=== PATIENT | female | born 1975 | race Caucasian/White ===

== ENCOUNTER 2021-06-03 13:18 | Emergency (ER) | payer MEDICAID, SELFPAY ==
[2021-06-03 13:33] VITALS: BP 173/126; PULSE 92; RESP 16; TEMP 36.8; O2SAT 99; BMI 25.7
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
[2021-06-03] MEDS: ketorolac 60 mg/2 mL INJ IM (13:54)
[2021-06-03] MEDS: dexamethasone 10 mg/mL INJ 8 MG IM (13:55)
--- NOTE | 2021-06-11 12:12 | DCPLANNER ---
manager product had message to speak with patient about getting a primary care physician. manager product unable to speak with patient at this time.
== END 2021-06-03 14:19 | disposition home or self-care (01) ==
PROVIDERS: Emergency Provider Physician Assistant
DX: G89.29 Other chronic pain (principal); M54.6 Pain in thoracic spine
CPT/HCPCS: 96372; 99283; J1100; J1885

== ENCOUNTER 2021-07-08 10:53 | Outpatient (CLI) | payer MEDICAID, SELFPAY ==
[2021-07-08 11:19] LABS: Basophils # 0.1 10^3/uL (0.0-0.1); Basophils % 0.7 %; Eosinophils # 0.8 10^3/uL (0.0-0.8); Eosinophils % 7.3 %; Hematocrit 43.6 % (37.0-47.0); Hemoglobin 14.7 g/dL (11.5-15.3); Lymphocytes # 3.2 10^3/uL (0.8-4.8); Lymphocytes % 27.9 %; Mean Corpuscular HGB Conc 33.7 g/dL (30.0-36.0); Mean Corpuscular Hemoglobin 30.6 pg (28.0-34.0); Mean Corpuscular Volume 90.6 fl (81-99); Mean Platelet Volume 9.5 fL (7.4-10.4); Monocytes # 0.8 10^3/uL (0.2-0.9); Monocytes % 6.6 %; Neutrophils # 6.46 10^3/uL (1.8-7.7); Neutrophils % 57.2 %; Nucleated Red Blood Cells % 0 %; Platelet Count 297 10^3/cmm (130-400); Red Blood Count 4.81 10^6/uL (4.1-5.3); Red Cell Distribution Width 12.5 % (12.1-15.1); White Blood Count 11.3 10^3/uL (4.0-10.0)
[2021-07-08 11:38] LABS: Alanine Aminotransferase 11 U/L (0-33); Albumin Level 4.9 g/dL (3.5-5.2); Alkaline Phosphatase 84 IU/L (35-105); Anion Gap 17.2 (5-19); Aspartate Amino Transferase 16 U/L (0-32); Blood Urea Nitrogen 10 mg/dL (6-20); Calcium 9.9 mg/dL (8.5-10.5); Carbon Dioxide 23 mmol/L (22-29); Chloride 103 mmol/L (98-107); Chol HDL Ratio 6.54 mg/dL (0.0-4.40); Cholesterol 268 mg/dL (0-200); Globulin 2.7 g/dL (1.3-4.6); Glomerular Filtration Rate 108.1 mL/min (90-130); Glucose 90 mg/dL (65-115); HDL Cholesterol 41 mg/dL (60-100); LDL Cholesterol Calculated 175 mg/dL (50-129); LDL HDL Ratio 4.27 RATIO (0.00-3.22); Osmolality Calculated 287 mOsm/kg (285-295); Potassium 4.2 mmol/L (3.5-5.1); Sodium 139 mmol/L (136-145); Total Bilirubin 0.3 mg/dL (0.15-1.2); Total Protein 7.6 g/dL (6.6-8.7); Triglycerides 262 mg/dL (0-150)
[2021-07-08 12:11] LABS: Hepatitis C Virus Antibody Non-Reactive (Nonreactive)
[2021-07-08 12:13] LABS: HIV 1 & 2 Antibody Non-Reactive (Non-Reactiv); HIV 1 & 2 Antigen Non-Reactive (Non-Reactiv)
== END 2021-07-08 10:54 | disposition home or self-care (01) ==
LOC: LAB 10:55
PROVIDERS: PCP Family Medicine; Visit Provider Family Medicine
DX: Z11.4 Encounter for screening for human immunodeficiency virus [HIV] (principal); Z11.59 Encounter for screening for other viral diseases; Z13.220 Encounter for screening for lipoid disorders; Z13.6 Encounter for screening for cardiovascular disorders; F17.218 Nicotine dependence, cigarettes, with other nicotine-induced disorders; Z76.89 Persons encountering health services in other specified circumstances; Z98.1 Arthrodesis status
CPT/HCPCS: 36415; 80053; 80061; 85025; 86803; 87806

== ENCOUNTER → 2021-07-15 09:36 | Outpatient (BNVA) | payer MEDICAID, SELFPAY | PROVIDERS: PCP Family Medicine; Referring Provider Family Medicine; Visit Provider Physician Assistant | DX: M54.50 Low back pain, unspecified (principal); Z98.1 Arthrodesis status; M54.6 Pain in thoracic spine | CPT/HCPCS: 99203 ==

== ENCOUNTER → 2021-07-22 09:45 | Outpatient (BNVA) | payer MEDICAID, SELFPAY | PROVIDERS: PCP Family Medicine; Visit Provider Anesthesiology Pain Medicine | DX: M79.18 Myalgia, other site (principal); M54.6 Pain in thoracic spine; F17.210 Nicotine dependence, cigarettes, uncomplicated | CPT/HCPCS: 20553; 99204; J1030; J3490 ==

== ENCOUNTER → 2021-08-12 13:58 | Outpatient (BNVA) | payer MEDICAID, SELFPAY | PROVIDERS: PCP Family Medicine; Visit Provider Family Medicine | DX: Z01.419 Encounter for gynecological examination (general) (routine) without abnormal findings (principal); F17.218 Nicotine dependence, cigarettes, with other nicotine-induced disorders; Z12.11 Encounter for screening for malignant neoplasm of colon; Z12.39 Encounter for other screening for malignant neoplasm of breast | CPT/HCPCS: 87624 ==

== ENCOUNTER → 2021-08-26 14:31 | Outpatient (BNVA) | payer MEDICAID, SELFPAY | PROVIDERS: PCP Family Medicine; Referring Provider Family Medicine; Visit Provider Surgery | DX: Z12.11 Encounter for screening for malignant neoplasm of colon (principal) ==

== ENCOUNTER 2021-09-04 06:00 | Outpatient (RCR) | payer MEDICAID, SELFPAY | END 2021-09-09 23:59 | disposition home or self-care (01) | LOC: SPT 06:00 | PROVIDERS: PCP Family Medicine; Referring Provider Family Medicine; Visit Provider Family Medicine | DX: M54.50 Low back pain, unspecified (principal); M54.6 Pain in thoracic spine; G89.29 Other chronic pain; Z98.1 Arthrodesis status | CPT/HCPCS: 97162 ==

== ENCOUNTER 2021-09-10 06:00 | Outpatient (RCR) | payer OTHER, SELFPAY | END 2021-10-09 23:59 | disposition home or self-care (01) | LOC: SPT 06:00 | PROVIDERS: PCP Family Medicine; Referring Provider Family Medicine; Visit Provider Family Medicine | DX: G89.29 Other chronic pain (principal); M54.50 Low back pain, unspecified; M54.6 Pain in thoracic spine; Z98.1 Arthrodesis status | CPT/HCPCS: 97110 ==

== ENCOUNTER 2021-09-17 13:04 | Outpatient (CLI) | payer MEDICAID, SELFPAY ==
--- NOTE | 2021-09-17 13:13 | MM_ITS ---
WS: [id number] BILATERAL 3D TOMOSYNTHESIS DIGITAL SCREENING MAMMOGRAPHY WITH CAD CLINICAL INFORMATION: Screening for breast cancer. HISTORY: Screening mammogram. No current complaints. COMPARISON: None. TECHNIQUE: Bilateral CC and MLO views. FINDINGS: The breasts are composed of heterogeneous fibroglandular density tissue, which can limit the detectio n of small underlying mass lesions. Bilateral nodular breast tissue. This most likely represents nahid st cyst but indeterminant no comparisons. Recommend further evaluation with bilateral four-quadrant b reast survey ultrasound. Largest nodule posterior depth LEFT breast in the MLO view measuring 8 mm. MM/[place] [id number] IMPRESSION: BI-RADS: 0-Incomplete: Need additional imaging evaluation FOLLOW UP: Need Additional Imaging Recommend bilateral four-quadrant breast survey ultrasound for multiple bilater al ovoid nodules likely bilateral breast cysts. No prior imaging.
== END 2021-09-17 13:05 | disposition home or self-care (01) ==
LOC: RAD 13:10
PROVIDERS: PCP Family Medicine; Visit Provider Family Medicine
DX: Z12.31 Encounter for screening mammogram for malignant neoplasm of breast (principal)
CPT/HCPCS: 77063; 77067

== ENCOUNTER 2021-09-19 06:29 | Day surgery (SDC) | payer MEDICAID, SELFPAY ==
[2021-09-16 09:44] VITALS: BMI 27.4
[2021-09-19 06:51] VITALS: BP 157/107; PULSE 89; RESP 18; TEMP 36.1; O2SAT 96
[2021-09-19] MEDS: sodium chloride 0.9% 1,000 ML 30 ML IV (06:51)
--- NOTE | 2021-09-19 07:13 | ANES.PREANE2 ---
Pre-Anesthetic Assessment Height/Weight: Height 1.6 m Weight 70.307 kg Temp Pulse Resp BP Pulse Ox 97.0 F L 89 18 157/107 96 09/19/21 06:51 09/19/21 06:51 09/19/21 06:51 09/19/21 06:51 09/19/21 06:51 Preop Diagnosis: need for colon screening Operation Date: 09/19/21 08:00 Proposed Procedures p Colonoscopy 79370,Z12.11(Not Applicable) - Matt Swain DO Familial anesthetic complications: None Was Beta Cris taken within 24 hours: N/A Was Clonidine taken within 24 hours: N/A Last intake: Intake Last Liquid Date 09/18/21 Last Liquid Time 21:00 Last Solid Date 09/17/21 Social Tobacco and No alcohol Exam alert, oriented x 3, clear to auscultation bilaterally and regular rate & rhythm Airway Mallampati: Class III Dentition: full Pulmonary Asthma took albuterol inhaler this morning CV/HEM None reported None reported Hepatic None reported GI None reported Metabolic Hyperlipidemia Musc/skel Lower Back Pain (s/p spinal fusion) Neuropsych None reported Anesthetic Plan ASA status: 2 Anesthesia: MAC Risk of > 500 ml blood loss (7ml/kg in children): No Medications/Allergies Home Medications Medication Instructions Recorded Confirmed Last Taken Type hydroxyzine HCl 50 mg tablet 50 mg PO TID PRN 06/03/21 09/19/21 09/17/21 History gabapentin 300 mg capsule 900 mg PO TID #270 cap 07/08/21 09/19/21 09/19/21 05:30 Rx meloxicam 7.5 mg tablet 7.5 mg PO DAILY #30 tab 07/08/21 09/19/21 09/17/21 Rx methocarbamol 500 mg tablet 500 mg PO TID #90 tab 07/08/21 09/19/21 09/17/21 Rx tiotropium bromide 1.25 2 puff INHALATION DAILY PRN 07/08/21 09/19/21 09/17/21 History mcg/actuation mist for inhalation (Spiriva Respimat) cetirizine 10 mg tablet 10 mg PO DAILY PRN #90 tab 07/10/21 09/19/21 09/17/21 Rx albuterol sulfate 90 mcg/actuation 1 inh INHALATION QID PRN #8.5 g 08/05/21 09/19/21 09/19/21 05:30 Rx aerosol inhaler bupropion HCl 150 mg 24 hr tablet, 150 mg PO QAM #30 tab 08/12/21 09/19/21 09/18/21 Rx extended release ihqcgrxc-cmosreohj-bwvqflwxm 3.5 4 drp OTIC (EAR) Q8H PRN 09/16/21 09/19/21 Unknown History mg-10,000 unit/mL-1 % ear drops,susp Allergies Allergy/AdvReac Type Severity Reaction Status Date / Time porcien Allergy ADR-Diarrhe Uncoded 09/19/21 06:45 a Current Medications Generic Name Dose Route Start Last Admin Trade Name Freq PRN Reason Stop Dose Admin Sodium Chloride 1,000 mls @ 30 mls/hr 09/19/21 06:45 09/19/21 06:51 Sodium Chloride 0.9% IV 09/20/21 06:44 30 mls/hr .Q24H BELLE Administration PFSH Anesthesia Surgical History History of thoracic spinal fusion Social History Smoking and tobacco status: never smoked Alcohol intake: current Alcohol intake frequency: holidays/special occasions only Data Anesthesia Cardiac Studies: No Data to Display
--- NOTE | 2021-09-19 08:01 | PM.HP ---
Providers/Chief Complaint Primary Care Provider: Klever Longo DO History of Present Illness Xiomy Aguirre is a 46 year old female in need of her first colonoscopy. No complaints Review of Systems General: Reports: 10 or more systems reviewed and unremarkable except in HPI and below Medications/Allergies Home Medications Medication Instructions Recorded Confirmed Last Taken Type hydroxyzine HCl 50 mg tablet 50 mg PO TID PRN 06/03/21 09/19/21 09/17/21 History gabapentin 300 mg capsule 900 mg PO TID #270 cap 07/08/21 09/19/21 09/19/21 05:30 Rx meloxicam 7.5 mg tablet 7.5 mg PO DAILY #30 tab 07/08/21 09/19/21 09/17/21 Rx methocarbamol 500 mg tablet 500 mg PO TID #90 tab 07/08/21 09/19/21 09/17/21 Rx tiotropium bromide 1.25 2 puff INHALATION DAILY PRN 07/08/21 09/19/21 09/17/21 History mcg/actuation mist for inhalation (Spiriva Respimat) cetirizine 10 mg tablet 10 mg PO DAILY PRN #90 tab 07/10/21 09/19/21 09/17/21 Rx albuterol sulfate 90 mcg/actuation 1 inh INHALATION QID PRN #8.5 g 08/05/21 09/19/21 09/19/21 05:30 Rx aerosol inhaler bupropion HCl 150 mg 24 hr tablet, 150 mg PO QAM #30 tab 08/12/21 09/19/21 09/18/21 Rx extended release ipudlqbb-unpklnzby-[id number] 3.5 4 drp OTIC (EAR) Q8H PRN 09/16/21 09/19/21 Unknown History mg-10,000 unit/mL-1 % ear drops,susp Allergies Allergy/AdvReac Type Severity Reaction Status Date / Time porcien Allergy ADR-Diarrhe Uncoded 09/19/21 06:45 a PFSH Acute PFSH: Surgical History History of thoracic spinal fusion Social History Smoking and tobacco status: never smoked Alcohol intake: current Alcohol intake frequency: holidays/special occasions only Vitals/I&O/Wt Last Vital Signs Temp 97.0 F L 09/19/21 06:51 Pulse 89 09/19/21 06:51 Resp 18 09/19/21 06:51 BP 157/107 09/19/21 06:51 Pulse Ox 96 09/19/21 06:51 Physical Exam Narrative: General : Patient is well developed , no acute distress, oriented x3 Head : Normal cephalic, a-traumatic. Ears : Pinnae and external canal are normal. Hearing is normal. Eyes : PERRLA, Sclera and injection are normal. No conjunctival discharge. Nose : Mucous membranes are without erythema. Throat : buccal mucosa is normal, gums are without significant recession or hypertrophy. Lungs : Equal chest rise bilaterally, no use of accessory muscles, trachea is midline. Cor : Rate and rhythm are normal. Abdomen : Soft, ND, NT, no g/r/m Extremities : No edema, no cyanosis or clubbing, dorsalis pedis pulses are present bilaterally, non-tender to palpation of calves. Upper extremities are normal bilaterally. Back : non-tender to palpation, no CVA tenderness. Neuro : CN II - XII intact, Upper and lower extremities have equal and full strength A&P Assessment and plan (1) Screening for malignant neoplasm of colon: Status: Acute Plan Colonoscopy The risks and benefits of the procedure, including bleeding, infection, intestinal perforation requiring surgery, missed lesion, or explained to the patient. He is understanding of the risks and wishes to proceed. Attestations Medical Necessity Statement*: Patient is not staying Coding Level of Care Code Acute Emulsion Coater for [facility] Fwd Diagnoses Screening for malignant neoplasm of colon Z12.11
[2021-09-19 08:27] VITALS: BP 137/72; PULSE 75; RESP 16; TEMP 36.1; O2SAT 97
[2021-09-19 08:37] VITALS: BP 121/77; PULSE 78; RESP 18; O2SAT 96
--- NOTE | 2021-09-19 16:24 | ANE.PACU2 ---
Inpatient post-anesthesia follow up: Airway intact: Yes Vital signs: Temperature 97.0 F Pulse Rate 78 Respiratory Rate 18 Blood Pressure 121/77 Pulse Oximetry 96 Oxygen Delivery Me thod Room Air Oxygen Flow Rate Fraction of Inspir ed Oxygen Hydration adequate: Yes Nausea and vomiting: No Pain level: 2 Mental status: Baseline
== END 2021-09-19 08:52 | disposition home or self-care (01) ==
PROVIDERS: PCP Family Medicine; Visit Provider Surgery
PROC: 0DJD8ZZ Inspection of Lower Intestinal Tract, Via Natural or Artificial Opening Endoscopic (ICD-10-PCS; CPT 45378; principal; 2021-09-19 08:00)
DX: Z12.11 Encounter for screening for malignant neoplasm of colon (principal); Z98.1 Arthrodesis status
CPT/HCPCS: 45378; J2704; J7030

== ENCOUNTER 2021-10-10 06:00 | Outpatient (RCR) | payer MEDICAID, SELFPAY | END 2021-11-09 23:59 | disposition home or self-care (01) | LOC: SPT 06:00 | PROVIDERS: PCP Family Medicine; Referring Provider Family Medicine; Visit Provider Family Medicine | DX: M54.6 Pain in thoracic spine (principal); M54.50 Low back pain, unspecified | CPT/HCPCS: 97110 ==

== ENCOUNTER 2021-12-23 10:16 | Outpatient (CLI) | payer MEDICAID, SELFPAY ==
--- NOTE | 2021-12-23 10:40 | US_ITS ---
WS: [id number] ULTRASOUND BREAST BILATERAL TECHNIQUE: Ultrasound bilateral breast focused area of concern. CLINICAL INFORMATION: multiple bilateral ovoid nodules FINDINGS: Ultrasound bilateral breasts. Multiple bilateral breast cysts. Dense bilateral parenchymal tissue with ductal ectasia. The largest in the RIGHT breast is complex with internal debris at the 12:00 position 1 cm from nippl e measuring 7.1 x 7.0 x 6.8 mm. Largest in the LEFT breast at the 3:00 position 2 cm from the nipple measuring 9.6 x 4.3 x 9.1 mm US/US breast BI complete [id number] IMPRESSION: Multiple bilateral breast cysts the largest described above. BI-RADS 2 benign Recommend return to annual screening mammography.
== END 2021-12-23 10:17 | disposition home or self-care (01) ==
PROVIDERS: PCP Family Medicine; Visit Provider Family Medicine
DX: N60.01 Solitary cyst of right breast (principal); N60.02 Solitary cyst of left breast
CPT/HCPCS: 76641

== ENCOUNTER 2021-12-23 12:41 | Emergency (ER) | payer MEDICAID, SELFPAY ==
[2021-12-23 12:50] VITALS: BP 157/97; PULSE 86; RESP 18; TEMP 36.6; O2SAT 96; BMI 27.4
--- NOTE | 2021-12-23 14:33 | PC.NURSE ---
called to lobby no answer
[2021-12-23] MEDS: ketorolac 60 mg/2 mL INJ IM (15:37)
[2021-12-23] MEDS: orphenadrine 30 mg/mL Inj 2 mL 60 MG IM (15:37)
[2021-12-23] MEDS: dexamethasone 10 mg/mL INJ IM (15:37)
[2021-12-23 15:51] VITALS: BP 144/100; PULSE 93; RESP 18; O2SAT 96
--- NOTE | 2021-12-23 16:33 | ED_ITS ---
HPI - Back Pain/Injury General: Chief Complaint: Back Pain/Injury Stated Complaint: Back pain Time Seen by Provider: 12/23/21 15:22 Source: patient Mode of arrival: ambulatory History of Present Illness: 46-year-old female presents emergency room complaining of back pain she productive cough last week progressively worsened. The coughing is worsening her back pain. She took Robaxin at home with no relief. Previous thoracic spine fusion. All this initially began with diarrhea and other respiratory symptoms which have decreased somewhat. Patient is a smoker. She denies any other symptoms no chest pain no dysuria frequency no abdominal pain. MD elicited complaint: back pain Pertinent past history: back surgery Onset (ago): week(s) (1) Timing: constant Severity: moderate Quality: sharp Location: thoracic spine Radiation: none Exacerbating factors: other (Coughing) Relieving factors: none Associated symptoms: Reports other; Deny abdominal pain, arthralgias, chills, change in bowel habits, difficulty walking, dysuria, fatigue, fecal incontinence, fever(s), hematuria, myalgias, nausea, numbness, syncope, tingling/numbness/burning, urinary frequency, urinary urgency, vomiting or weakness Review of Systems Const: Denies: fever(s), chills or fatigue ENMT: Reports: throat pain Card: Denies: chest pain or syncope Resp: Reports: dyspnea, productive cough and wheezing GI: Denies: abdominal pain, nausea, vomiting, fecal incontinence or change in bowel habits : Denies: flank pain, difficulty voiding, dysuria, urinary frequency, urinary urgency or hematuria Neuro: Denies: difficulty walking PFSH ED PFSH: Medical History Psychiatric care Surgical History History of thoracic spinal fusion Social History Smoking and tobacco status: never smoked Alcohol intake: current Alcohol intake frequency: holidays/special occasions only Physical Exam Const: COMMON NORMALS: no acute distress GENERAL APPEARANCE: cooperative and comfortable ORIENTATION/CONSCIOUSNESS: Yes awake, Yes oriented to person, Yes oriented to place and Yes oriented to time HENMT: COMMON NORMALS: normocephalic and atraumatic HEAD & SCALP: normocephalic and atraumatic Resp: AUSCULTATION: rhonchi and wheezes Cardio: COMMON NORMALS: regular rate, regular rhythm and No murmurs present (Cardio) RATE: regular rate RHYTHM: regular rhythm GI: COMMON NORMALS: Soft to palpation and No hepatosplenomegaly present AUSCULTATION: Yes normoactive bowel sounds PALPATION: Yes Soft to palpation, No Tenderness to palpation present (GI), No Guarding due to palpation present (GI) and Yes No hepatosplenomegaly present Extremity: COMMON NORMALS: normal to inspection, capillary refill normal, no clubbing, cyanosis or edema, no calf tenderness and no pedal edema Neuro: SENSORIUM/ORIENTATION: Yes oriented to person, Yes oriented to place and Yes oriented to time Skin: COMMON NORMALS: no rashes or lesions noted GENERAL SKIN EXAM: no rashes or lesions noted Course Vital Signs: Vital signs: Vital Signs Temperature 97.9 F 12/23/21 12:50 Pulse Rate 93 12/23/21 15:51 Respiratory Rate 18 12/23/21 15:51 Blood Pressure 144/100 12/23/21 15:51 Pulse Oximetry 96 12/23/21 15:51 Oxygen Delivery Me thod 12/23/21 12:50 MDM - Back Pain/Injury Medical Decision Making Start patient on steroid taper as well as doxycycline continue to use albuterol. We did test her for COVID and very suspicious of a given the onset with diarrhea with progressive worsening. Her oxygen are stable at this point. Make her back pain is just from the chronic coughing we did give her some medications here for that and she can continue to use ibuprofen and the steroid should help as well follow-up with her primary care doctor return if has further problems. Medical Records I reviewed the patient's medical records. Labs I reviewed the patient's lab results. Discharge Plan Discharge Patient Disposition: Home Clinical Impression: Acute exacerbation of chronic obstructive pulmonary disease, Back pain, thoracic, Suspected 2019-nCoV infection Condition: Stable Prescriptions: New doxycycline hyclate 100 mg capsule 100 mg PO BID 10 Days Qty: 20 0RF diclofenac sodium 75 mg tablet,delayed release (DR/EC) 75 mg PO Q12H PRN (Reason: pain) Qty: 20 0RF tizanidine 4 mg capsule 4 mg PO Q8H PRN (Reason: muscle spasticity) Qty: 20 0RF No Action Spiriva Respimat 1.25 mcg/actuation mist 2 puff inhalation DAILY PRN (Reason: Shortness Of Breath) cetirizine 10 mg tablet 10 mg PO DAILY PRN (Reason: allergy symptoms) Qty: 90 1RF bupropion HCl 150 mg tablet extended release 24 hr 150 mg PO QAM Qty: 90 1RF methocarbamol 500 mg tablet 500 mg PO TID Qty: 90 1RF meloxicam 7.5 mg tablet 7.5 mg PO DAILY Qty: 90 1RF albuterol sulfate [ProAir HFA] 90 mcg/actuation HFA aerosol inhaler See Rx Instructions .ROUTE .COMPLEX Qty: 8.5 2RF Dose Instruction: INHALE 1 PUFF FOUR TIMES DAILY NEEDED FOR SHORTNESS OF BREATH OR WHEEZING Rx Instructions: INHALE 1 PUFF FOUR TIMES DAILY NEEDED FOR SHORTNESS OF BREATH OR WHEEZING gabapentin 300 mg capsule 900 mg PO TID Qty: 270 2RF hydroxyzine HCl 50 mg Tablet 50 mg PO TID PRN (Reason: Anxiety) brtussga-iadwyaaod-NI 3.5-10,000-1 mg/mL-unit/mL-% drops,suspension 4 drp otic (ear) Q8H PRN (Reason: Ear Pain) Discharge Orders: Discharge ED (Routine); Ordered 12/23/21 Ordered By: Andrés Howard Referrals: Klever Longo DO [Primary Care Provider] - Discharge Diet: Usual diet Discharge Activity: Increase activity as tolerated Patient Instructions: Opioid Safety, Pain Management Activity Restrictions/Additional Instructions: CautionYou were tested for COVID prior to discharge. Recommend maintaining his until we call with results of your testing. Coding Level of Care Code ED Internet Network Specialist for [facility]
[2021-12-23 21:54] LABS: Adenovirus Not Detected (NOT DETECT); Chlamydia Pneumoniae Not Detected (NOT DETECT); Coronavirus 229E,HKU1,NL63,OC4 Not Detected (NOT DETECT); Human Metapneumovirus Not Detected (NOT DETECT); Human Rhinovirus/Enterovirus Detected (NOT DETECT); Influenza A Not Detected (NOT DETECT); Influenza A H1 Not Detected (NOT DETECT); Influenza A H1-2009 Not Detected (NOT DETECT); Influenza A H3 Not Detected (NOT DETECT); Influenza B Not Detected (NOT DETECT); Mycoplasma Pneumoniae Not Detected (NOT DETECT); Parainfluenza Virus Type 1 Not Detected (NOT DETECT); Parainfluenza Virus Type 2 Not Detected (NOT DETECT); Parainfluenza Virus Type 3 Not Detected (NOT DETECT); Parainfluenza Virus Type 4 Not Detected (NOT DETECT); Respiratory Syncytial Virus A Not Detected (NOT DETECT); Respiratory Syncytial Virus B Not Detected (NOT DETECT); SARS-COV-2 Not Detected (NOT DETECT)
[2021-12-24 10:49] LABS: Human Metapneumovirus Not Detected (NOT DETECT); Human Rhinovirus/Enterovirus Detected (NOT DETECT); Results from Genmark
== END 2021-12-23 15:52 | disposition home or self-care (01) ==
PROVIDERS: Emergency Provider Family Medicine; PCP Family Medicine
DX: J44.1 Chronic obstructive pulmonary disease with (acute) exacerbation (principal); M54.6 Pain in thoracic spine; Z20.822 Contact with and (suspected) exposure to COVID-19
CPT/HCPCS: 87635; 87801; 96372; 99284; J1100; J1885; J2360

== ENCOUNTER → 2022-03-16 09:49 | Outpatient (BNVA) | payer OTHER, SELFPAY | PROVIDERS: PCP Family Medicine; Visit Provider Student in an Organized Health Care Education/Training Program | DX: G56.03 Carpal tunnel syndrome, bilateral upper limbs (principal) | CPT/HCPCS: 73110 ==

== ENCOUNTER 2022-04-08 05:35 | Day surgery (SDC) | payer MEDICAID, SELFPAY ==
[2022-04-07 12:57] VITALS: BMI 31.1
[2022-04-08] VITALS (7 sets, daily range): BP systolic 102–154; BP diastolic 54–95; PULSE 68–86; RESP 17–18; TEMP 36.1–36.6; O2SAT 95–99
[2022-04-08] MEDS: acetaminophen 1,000 MG/100 ML PIGGYBACK 400 MG IV (06:35)
[2022-04-08] MEDS: ketorolac 30 mg/mL INJ IVP (06:36)
[2022-04-08] MEDS: sodium chloride 0.9% 1,000 ML 30 ML IV (06:37)
--- NOTE | 2022-04-08 06:45 | ANES.PREANE2 ---
Pre-Anesthetic Assessment Height/Weight: Height 1.57 m Weight 77.111 kg Temp Pulse Resp BP Pulse Ox O2 Del Method 97.9 F 86 18 130/94 97 04/08/22 06:06 04/08/22 06:06 04/08/22 06:06 04/08/22 06:06 04/08/22 06:06 04/08/22 06:09 Preop Diagnosis: Left carpal tunnel syndrome Operation Date: 04/08/22 07:00 Proposed Procedures p Carpal tunnel release Left hand 03319 G56.0(Left) - Jevon Damonatt, Familial anesthetic complications: None Was Beta Cris taken within 24 hours: N/A Was Clonidine taken within 24 hours: N/A Last intake: Intake Last Liquid Date 04/07/22 Last Liquid Time 22:45 Last Solid Date 04/07/22 Last Solid Time 22:45 Social Tobacco and No alcohol Exam alert, oriented x 3, clear to auscultation bilaterally and regular rate & rhythm Airway Mallampati: Class II Dentition: false Pulmonary Asthma and Chronic Obstructive Pulmonary Disease Metabolic Hyperlipidemia Musc/skel Lower Back Pain (fusion) Anesthetic Plan ASA status: 3 Anesthesia: General Risk of > 500 ml blood loss (7ml/kg in children): No Medications/Allergies Home Medications Medication Instructions Recorded Confirmed Last Taken Type hydroxyzine HCl 50 mg tablet 50 mg PO TID PRN Anxiety 06/03/21 04/07/22 04/06/22 History tiotropium bromide 1.25 2 puff inhalation DAILY PRN 07/08/21 04/07/22 09/17/21 History mcg/actuation mist for inhalation Shortness Of Breath (Spiriva Respimat) meloxicam 7.5 mg tablet 7.5 mg PO DAILY #90 tabs 11/14/21 04/08/22 04/06/22 Rx gabapentin 300 mg capsule 900 mg PO TID #270 caps 12/22/21 04/08/22 04/08/22 Rx cetirizine 10 mg tablet 10 mg PO DAILY PRN allergy 01/29/22 04/08/22 04/07/22 Rx symptoms #90 tabs TENS unit #1 ea 02/17/22 03/16/22 Unknown Rx methocarbamol 500 mg tablet See Rx Instructions .Route 03/31/22 04/08/22 04/08/22 Rx .COMPLEX #90 tabs albuterol sulfate 90 mcg/actuation 2 inh inhalation DAILY 04/08/22 04/08/22 04/08/22 History aerosol inhaler (Ventolin HFA) bupropion HCl 300 mg 24 hr tablet, 300 mg PO QAM 04/08/22 04/08/22 04/07/22 History extended release (Wellbutrin XL) Allergies Allergy/AdvReac Type Severity Reaction Status Date / Time paroxetine [From Paxil] Allergy Severe ADR-Irritab Verified 03/16/22 09:35 le porcien Allergy ADR-Diarrhe Uncoded 03/16/22 09:35 a Current Medications Generic Name Dose Route Start Last Admin Trade Name Freq PRN Reason Stop Dose Admin Sodium Chloride 1,000 mls @ 30 mls/hr 04/08/22 06:15 04/08/22 06:37 Sodium Chloride 0.9% IV 04/09/22 06:14 30 mls/hr .Q24H BELLE Administration PFSH Anesthesia Medical History Psychiatric care Surgical History History of thoracic spinal fusion Social History Smoking and tobacco status: current every day smoker Alcohol intake: current Alcohol intake frequency: holidays/special occasions only Female Reproductive History Spontaneous abortions: No Data Anesthesia Cardiac Studies: No Data to Display
--- NOTE | 2022-04-08 07:00 | W.PM.OPSUD ---
Surgery/Procedure H&P Update DATE OF PROCEDURE: April 08, 2022 DATE H&P PERFORMED: 03/16/22 CHANGES TO PREVIOUS DOCUMENTATION: None PREOP DIAGNOSIS: Left carpal tunnel syndrome PRIMARY INDICATION FOR PROCEDURE: Left Carpal Tunnel Syndrome PLANNED PROCEDURE: Operation Date: 04/08/22 07:00 Proposed Procedures p Carpal tunnel release Left hand [id number] G56.0(Left) - Jevon Smart DO
[2022-04-08] MEDS: ceFAZolin 2,000 MG in sodium chloride 0.9% (plus) 50 ML 100 MG IV (07:05)
[2022-04-08] MEDS: lidocaine 2% INJ 20 mL INJECTION (07:27)
--- NOTE | 2022-04-08 09:28 | PM.PACU ---
PACU note Narrative: VSS, Good respiratory effort, report to TRAILER TECHNICIAN Exam: awake
--- NOTE | 2022-04-08 09:28 | P.PCN_ITS ---
PACU note Narrative: VSS, Good respiratory effort, report to SKEWER UP Exam: awake
--- NOTE | 2022-04-08 12:54 | P.OP_ITS ---
Operative Report Date of procedure: April 08, 2022 Pre-op diagnosis: Preop Diagnosis Left carpal tunnel syndrome Post-op diagnosis: Same Procedure done: Left carpal tunnel release Surgeon: Jevon Smart DO Estimated blood loss: 1 mL 12 minutes IV fluids: See anesthesia record Urine output: See anesthesia record Complications: None Findings: See operative report narrative Condition: stable Disposition: same day Brief History: Patient's been seen and evaluated in the outpatient setting for bilateral carpal tunnel syndrome. She is failed conservative treatment and after thorough discussion in the office about continuing nonoperative versus operative intervention we detailed out the risk benefits complications alternatives to each. Understanding her wrist she like to proceed with a left carpal tunnel release surgery. All questions been answered. Consent was reviewed and signed with patient. Procedure: Patient seen evaluate in the preoperative holding area. Consent reviewed and signed with patient. Correct extremity marked. Patient was then seen evaluate by the anesthesia department once cleared for surgery was taken back to the operative suite placed onto the OR table in supine position all bony prominences well-padded patient was appropriately secured to the bed. Left armboard was applied and the left upper extremity was then placed onto the armboard. Nonsterile tourniquet applied to the left upper extremity. Patient then underwent anesthesia per the anesthesia department and the left lower extremities then prepped and draped in standard orthopedic fashion Patient received appropriate preoperative antibiotics. Final timeout performed. Under sterile aseptic technique local anesthesia was placed into the carpal tunnel and planned incision. Esmarch tourniquet was used exsanguinate the left upper extremity 250 mmHg. Standard mini open incision of the left carpal tunnel was then made starting with the distal most extent at Chu's cardinal line and in line the ulnar side of the fourth ray. This incision was brought approximately just distal to the flexor wrist crease. Scalpel was used to excise through skin and subcutaneous tissue. Self-retaining retractor was then applied. I then identified the palmar fascia which was split longitudinally. Deep self-retaining retractor was in place as well as my showroom sales assistant placed a Kasdan retractor and both distally and proximally. I then utilizing scalpel feathered through the transverse carpal ligament till entered the floor of the ligament and entered into the carpal tunnel. Immediately the contents of the carpal tunnel were identified. I switched to Littler dissection scissors and completed my release of the transverse carpal ligament distally until I encountered the palmar fat and no entrapment of the nerve was noted distally. Care was made to protect neurovascular structures of the palmar arch. Next I then spread bluntly on top of the transverse carpal ligament and placed a Kasdan retractors proximally for direct visualization under loupe magnification of the proximal portion of the transverse carpal ligament. Keeping my Littler dissection scissors curved ulnarly I then incised the rest of the transverse carpal ligament proximally and released all the way to the medial antebrachial fascia with no areas of entrapment proximally after the release. The nerve was found to be irritated an d hourglass shape no masses were noted within the contents of the carpal tunnel. The palmar cutaneous branch as well as recurrent branch were protected throughout the case. I then placed a [place] both proximally and distally and no areas of entrapment on top of the median nerve was identified. Nerve was adequate decompressed. Tourniquet was then deflated. Wound was thoroughly irrigated. Hemostasis satisfactory with bipolar electrocautery. Incision was then reapproximated with interrupted nylon suture. Xeroform and a bulky soft dressing was then applied. Patient was then awakened from anesthesia and taken to PACU in stable condition. Disposition: Patient taken to PACU in stable condition receive appropriate discharge instruction as well as pain medication postoperatively. We will follow-up with me in the office in 2 weeks. With the plan to perform a right carpal tunnel release surgery once her incision to her left carpal tunnel release has healed. Patient understands and agrees with current plan. All questions answered.
--- NOTE | 2022-04-08 12:54 | PM.OP2 ---
Brief Operative Note Date of procedure: 04/12/22 Pre-op diagnosis: Left carpal tunnel syndrome Post-op diagnosis: same Procedure Done: Left carpal tunnel release Surgeon: Jevon Smart Estimated blood loss (mL): 1 Complications: None Post-op Plan: Patient taken to PACU in stable condition recovering well. Will receive appropriate discharge instructions as well as pain medication postoperatively. We will follow-up with Dr. Smart in the office in 2 weeks. Condition: stable Disposition: same day Coding Level of Care Code Acute [employer] for [facility]
--- NOTE | 2022-04-08 12:54 | PM.PACU ---
PACU note Narrative: Patient taken to PACU in stable condition. Patient recovering well. Decreased sensation secondary to local block. Dressing on in place clean dry and intact. Fingertips warm well perfused. Patient is able to wiggle fingers. Exam: awake Disposition: discharged
--- NOTE | 2022-04-08 12:54 | ANE.PACU2 ---
Inpatient post-anesthesia follow up: Airway intact: Yes Vital signs: Temperature 97.0 F Pulse Rate 68 Respiratory Rate 18 Blood Pressure 111/84 Pulse Oximetry 98 Oxygen Delivery Me thod Room Air Oxygen Flow Rate Fraction of Inspir ed Oxygen Hydration adequate: Yes Nausea and vomiting: No Pain level: 1 Mental status: Baseline
== END 2022-04-08 08:43 | disposition home or self-care (01) ==
PROVIDERS: PCP Family Medicine; Visit Provider Student in an Organized Health Care Education/Training Program
PROC: (CPT 64721; principal; 2022-04-08 07:00)
DX: G56.02 Carpal tunnel syndrome, left upper limb (principal); J44.9 Chronic obstructive pulmonary disease, unspecified; E78.5 Hyperlipidemia, unspecified; F17.210 Nicotine dependence, cigarettes, uncomplicated
CPT/HCPCS: 64721; J0131; J0690; J1885; J2250; J2704; J2795; J3010; J7030

== ENCOUNTER 2022-08-11 12:23 | Emergency (ER) | payer MEDICAID, SELFPAY ==
[2022-08-11 12:34] VITALS: BP 159/102; PULSE 85; RESP 16; TEMP 36.6; O2SAT 98; BMI 27.8
--- NOTE | 2022-08-11 13:19 | W.ED.EXTPRO ---
HPI - Extremity Problem General: Chief complaint: Extremity Injury, Upper Stated complaint: Left hand injury Time Seen by Provider: 08/11/22 12:45 Source: patient Mode of arrival: ambulatory Limitations: no limitations History of Present Illness: Patient is a 47-year-old female presents to ED today for evaluation of left thumb pain that she has had over the past month or so. No known injury or trauma. She has not noticed any swelling or redness to the finger or hand. Pain seems to be worse with movement. MD Complaint: extremity pain Onset (ago): week(s) Pain Consistency: intermittent Location: left and upper extremity Radiation: none Relieving factors: immobilization Exacerbating factors: other (movement) Associated symptoms: Reports no associated symptoms; Deny fever(s) Review of Systems Const: Denies: fever(s), chills, body aches, fatigue or malaise Musc: Reports: extremity pain (L thumb); Denies: extremity swelling, joint pain, joint swelling, joint redness, joint warmth or limited range of motion Neuro: Denies: numbness in extremities, weakness in extremities or sensory changes PFSH ED PFSH: Medical History Psychiatric care Surgical History History of thoracic spinal fusion Social History Smoking and tobacco status: current every day smoker Alcohol intake: current Alcohol intake frequency: holidays/special occasions only Substance/Drug Use: current Substance/Drug use frequency: daily Other substance/drug use details: states she uses marijuana gummies for pain relief Female Reproductive History: Spontaneous abortions: No Physical Exam Const: COMMON NORMALS: no acute distress, patient oriented x3, no limitations, healthy appearing, alert and well nourished Extremity: COMMON NORMALS: normal to inspection, full ROM, capillary refill normal, no joint enlargement and no clubbing, cyanosis or edema GENERAL: Yes normal exam except as noted RIGHT UPPER EXTREMITY: Yes hand & digits (TTP along extensor/abductor surface L thumb) Right hand and digits: Yes ROM exam (normal), Yes neurovascular exam (normal) and Yes hand special tests (+ Evie's) Neuro: COMMON NORMALS: patient oriented x3, moves all extremities, no focal motor deficits and no sensory deficits noted SENSORIUM/ORIENTATION: Yes alert Course Vital Signs: Vital signs: Vital Signs Temperature 97.9 F 08/11/22 12:34 Pulse Rate 85 08/11/22 12:34 Respiratory Rate 16 08/11/22 12:34 Blood Pressure 159/102 08/11/22 12:34 Pulse Oximetry 98 08/11/22 12:34 Oxygen Delivery Me thod Room Air 08/11/22 12:34 MDM - Extremity (Nontraumatic) Medical Decision Making Symptoms consistent with a de Quervain's tenosynovitis. Recommend bracing and anti-inflammatories at this time. Recommend follow-up with PCP in 1 to 2 weeks if symptoms do not seem to be improving. Discharge Plan Discharge Patient Disposition: Home Clinical Impression: De Quervain's tenosynovitis Condition: Stable Prescriptions: No Action Spiriva Respimat 1.25 mcg/actuation mist 2 puff inhalation DAILY PRN (Reason: Shortness Of Breath) (DME) TENS unit See Rx Instructions .Route .MEDSUPPLY Qty: 1 0RF Rx Instructions: Please issue TENS unit to use for thoracic and lumbar back pain. azithromycin 250 mg tablet See Rx Instructions PO .COMPLEX Qty: 6 0RF Rx Instructions: take 500 mg today (day 1), then 250 mg for 4 days (days 2-5) PO meloxicam 7.5 mg tablet 7.5 mg PO DAILY Qty: 90 1RF cetirizine 10 mg tablet 10 mg PO DAILY PRN (Reason: allergy symptoms) Qty: 90 1RF gabapentin 300 mg capsule See Rx Instructions .ROUTE .COMPLEX Qty: 270 2RF Dose Instruction: TAKE THREE CAPSULES BY MOUTH THREE TIMES DAILY Rx Instructions: TAKE THREE CAPSULES BY MOUTH THREE TIMES DAILY methocarbamol 500 mg tablet See Rx Instructions .ROUTE .COMPLEX Qty: 90 1RF Dose Instruction: TAKE 1 TABLET BY MOUTH THREE TIMES DAILY Rx Instructions: TAKE 1 TABLET BY MOUTH THREE TIMES DAILY hydroxyzine HCl 50 mg Tablet 50 mg PO TID PRN (Reason: Anxiety) Ventolin HFA 90 mcg/actuation HFA aerosol inhaler 2 inh inhalation DAILY Rx Instructions: INHALE 1 PUFF FOUR TIMES DAILY NEEDED FOR SHORTNESS OF BREATH OR WHEEZING Wellbutrin XL 300 mg tablet extended release 24 hr 300 mg PO QAM Discharge Orders: Discharge ED (Routine); Ordered 08/11/22 Ordered By: Pretty Morgan Referrals: Klever Longo DO [Primary Care Provider] - Patient Instructions: De Quervain Disease (ED) Coding Level of Care Code ED [employer] [facility]
== END 2022-08-11 13:37 | disposition home or self-care (01) ==
PROVIDERS: Emergency Provider Physician Assistant; PCP Family Medicine
DX: M65.4 Radial styloid tenosynovitis [de Quervain] (principal); F17.210 Nicotine dependence, cigarettes, uncomplicated
CPT/HCPCS: 99282